=== PATIENT | male | born 1980 | race African-American/Black ===

== ENCOUNTER 2018-11-21 18:09 | Outpatient (CLI) | payer OTHER ==
[2018-11-21 18:59] LABS: Anion Gap 12 mmol/L (10-20); Carbon Dioxide 25 mmol/L (22-29); Chloride 102 mmol/L (98-107); Potassium 4.3 mmol/L (3.5-5.1); Sodium 135 mmol/L (136-145)
[2018-11-21 19:00] LABS: Dilantin 22.1 ug/mL (10.0-20.0)
== END 2018-11-21 18:10 | disposition home or self-care (01) ==
LOC: NAV LAB 18:09
DX: G40.909 Epilepsy, unspecified, not intractable, without status epilepticus (principal)
CPT/HCPCS: 80051; 80185